=== PATIENT | male | born 1970 | race Caucasian/White ===

== ENCOUNTER 2016-10-25 11:37 | Emergency (ER) | payer OTHER ==
[2016-10-25 11:41] VITALS: PULSE 65; RESP 16; TEMP 98.8
[2016-10-25 11:46] VITALS: O2SAT 98
--- NOTE | 2016-10-25 12:21 | ED PDOC ---
HPI: Back Time Seen by Provider: 10/25/16 12:19 Chief Complaint (Nursing): Back Pain Chief Complaint (Provider): back strain History Per: Patient (46 y/o male here for evaluation of back pain that occurred after misstepping yesterday. Notes worsening pain aggravated by going to gym/taking care of young kids. Notes numbness posterior left leg intermittently. Denies any urinary or rectal incontinence.) Past Medical History Reviewed: Historical Data, Nursing Documentation, Vital Signs Vital Signs: Last Vital Signs Temp 98.8 F 10/25/16 11:40 Pulse 65 10/25/16 11:40 Resp 16 10/25/16 11:40 BP 155/77 H 10/25/16 11:40 Pulse Ox 98 10/25/16 11:44 - Family History Family History: States: No Known Family Hx - Home Medications Home Medications: Ambulatory Orders Medication Instructions Recorded Ibuprofen [Motrin] 600 mg PO Q6 PRN #15 tab 08/28/15 traMADol [Ultram] 50 mg PO TID PRN #10 tab 08/28/15 Naproxen [Naprosyn Tab] 375 mg PO Q8 PRN #21 tab 10/25/16 diaZEpam [Valium] 5 mg PO Q6 PRN #3 tab 10/25/16 - Allergies Allergies/Adverse Reactions: Allergies Allergy/AdvReac Type Severity Reaction Status Date / Time No Known Allergies Allergy Verified 10/25/16 11:44 Review of Systems ROS Statement: Except As Marked, All Systems Reviewed And Found Negative Musculoskeletal: Positive for: Back Pain Neurological: Positive for: Other (left leg numbness) Physical Exam - Reviewed Nursing Documentation Reviewed: Yes Vital Signs Reviewed: Yes - Physical Exam Appears: Positive for: Well, Non-toxic, No Acute Distress Head Exam: Positive for: ATRAUMATIC, NORMAL INSPECTION, NORMOCEPHALIC Skin: Positive for: Normal Color, Warm, DRY Eye Exam: Positive for: EOMI, Normal appearance, PERRL ENT: Positive for: Normal ENT Inspection Neck: Positive for: Normal, Painless ROM Cardiovascular/Chest: Positive for: Regular Rate, Rhythm Respiratory: Positive for: CNT, Normal Breath Sounds Gastrointestinal/Abdominal: Positive for: Normal Exam, Bowel Sounds, Soft Back: Positive for: Normal Inspection, Other (lower paralumbar tenderness R>L) Extremity: Positive for: Normal ROM Neurologic/Psych: Positive for: Alert, Oriented - ECG O2 Sat by Pulse Oximetry: 98 - Progress ED Course And Treament: toradol 30 mg IM x 1 dose Disposition - Clinical Impression Clinical Impression: Back strain, Sciatica - Patient ED Disposition Is Patient to be Admitted: No - Disposition Disposition: Routine/Home Disposition Time: 12:24 Condition: FAIR Prescriptions: diaZEpam [Valium] 5 mg PO Q6 PRN #3 tab PRN Reason: Muscle Spasm Naproxen [Naprosyn Tab] 375 mg PO Q8 PRN #21 tab PRN Reason: Pain, Moderate (4-7) Instructions: Sciatica (ED), Acute Low Back Pain (ED) Forms: [facility] ([place]), [facility] ED School/Work Excuse
[2016-10-25 12:57] VITALS: BP 132/74
== END 2016-10-25 12:55 | disposition home or self-care (01) ==
LOC: H.ER 11:37
DX: S39.012A Strain of muscle, fascia and tendon of lower back, initial encounter (principal); X50.9XXA Other and unspecified overexertion or strenuous movements or postures, initial encounter; Y92.89 Other specified places as the place of occurrence of the external cause
CPT/HCPCS: 96372; 99282; J1885